=== PATIENT | female | born 1995 | race Caucasian/White ===

== ENCOUNTER 2018-07-18 12:33 | Emergency (ER) | END 2018-07-18 15:33 | disposition home or self-care (01) ==

== ENCOUNTER 2019-01-12 15:28 | Emergency (ER) | payer MEDICAID ==
[~2019-01-12] VITALS: Ht 177.8 cm; Wt 124.6 kg
[~2019-01-12 15:28] MED LIST: DOCU-144 PO; FER325 PO; NAPR-985 PO; NORE-90 PO
[2019-01-12 15:42] VITALS: Ht 177.8 cm; Wt 124.6 kg
[2019-01-12] MEDS ORDERED: ONDANSETRON (ODT) 4 MG TAB ODT STA (18:04)
[2019-01-12] MEDS ORDERED: HYDROCODONE/APAP (5/325) TAB PO ONE (18:30)
[2019-01-12] MEDS ORDERED: IBUP-1542 PO (20:33)
[2019-01-12] MEDS ORDERED: HYDR-4011 PO (20:33)
--- NOTE | 2019-01-12 20:36 | ERD ---
ER Documentation Chief Complaint Chief Complaint pelvic pain also vaginal bleeding x 15 days after removing IUD ROS All systems reviewed and are negative except as per history of present illness. Medications Home Meds Active Scripts Hydrocodone/Acetaminophen (Franklin 5-325 Tablet) 1 Each Tablet, 1 TAB PO Q6H PRN for PAIN, #10 TAB Prov:TRACY CESAR DO 01/12/19 Ibuprofen* (Motrin*) 600 Mg Tab, 600 MG PO Q6H PRN for PAIN AND OR ELEVATED TEMP, #30 TAB Prov:TRACY CESAR DO 01/12/19 Docusate Sodium* (Colace*) 100 Mg Capsule, 100 MG PO TID, #30 CAP Prov:EVERT WELCH PA-C 07/18/18 Ferrous Sulfate* (Ferrous Sulfate*) 325 Mg Tabec, 325 MG PO DAILY, #30 TAB Prov:EVERT WELCH PA-C 07/18/18 Naproxen* (Naprosyn*) 500 Mg Tablet, 500 MG PO BID PRN for PAIN AND/OR INFLAMMATION, #30 TAB Prov:EVERT WELCH PA-C 07/18/18 Norethindrone-E.estradiol-Iron (Loestrin Fe 1.5-30 Tablet) 1 Each Tablet, 1 EACH PO DAILY, #30 TAB Prov:EVERT WELCH PA-C 07/18/18 Allergies Allergies: Coded Allergies: No Known Allergy (Unverified , 01/12/19) PMhx/Soc History of Surgery: Yes () Anesthesia Reaction: No Hx Neurological Disorder: No Hx Respiratory Disorders: No Hx Cardiac Disorders: No Hx Psychiatric Problems: No Hx Miscellaneous Medical Probl: Yes (elevated platelets) Hx Alcohol Use: No Hx Substance Use: No Hx Tobacco Use: No Smoking Status: Never smoker Physical Exam Vitals Vital Signs Date Temp Pulse Resp B/P (MAP) Pulse Ox O2 O2 Flow FiO2 Time Delivery Rate 01/12/19 99.3 106 18 134/79 100 15:42 (97) Physical Exam Const: No acute distress Head: Atraumatic Eyes: Normal Conjunctiva ENT: Normal External Ears, Nose and Mouth. Neck: Full range of motion. No meningismus. Resp: Clear to auscultation bilaterally Cardio: Regular rate and rhythm, no murmurs Abd: Soft, non tender, non distended. Normal bowel sounds Skin: No petechiae or rashes Back: No midline or flank tenderness Ext: No cyanosis, or edema Neur: Awake and alert Psych: Normal Mood and Affect Result Diagram: 01/12/19181901/12/191819 Results 24 hrs Laboratory Tests Test 01/12/19 18:20 01/12/19 18:30 White Blood Count 10.0 10^3/ul Red Blood Count 4.43 10^6/ul Hemoglobin 10.6 g/dl Hematocrit 34.3 % Mean Corpuscular Volume 77.4 fl Mean Corpuscular Hemoglobin 23.9 pg Mean Corpuscular Hemoglobin Concent 30.9 g/dl Red Cell Distribution Width 16.3 % Platelet Count 546 10^3/UL Mean Platelet Volume 9.1 fl Immature Granulocytes % 0.500 % Neutrophils % 50.9 % Lymphocytes % 38.0 % Monocytes % 7.9 % Eosinophils % 2.1 % Basophils % 0.6 % Nucleated Red Blood Cells % 0.0 /100WBC Immature Granulocytes # 0.050 10^3/ul Neutrophils # 5.1 10^3/ul Lymphocytes # 3.8 10^3/ul Monocytes # 0.8 10^3/ul Eosinophils # 0.2 10^3/ul Basophils # 0.1 10^3/ul Nucleated Red Blood Cells # 0.0 10^3/ul Sodium Level 141 mmol/L Potassium Level 3.7 mmol/L Chloride Level 108 mmol/L Carbon Dioxide Level 23 mmol/L Anion Gap 10 Blood Urea Nitrogen 11 mg/dl Creatinine 0.57 mg/dl Est Glomerular Filtrat Rate mL/min > 60 mL/min Glucose Level 100 mg/dl Calcium Level 9.5 mg/dl Total Bilirubin 0.1 mg/dl Direct Bilirubin 0.00 mg/dl Indirect Bilirubin 0.1 mg/dl Aspartate Amino Transf (AST/SGOT) 21 IU/L Alanine Aminotransferase (ALT/SGPT) 34 IU/L Alkaline Phosphatase 112 IU/L Total Protein 8.4 g/dl Albumin 4.2 g/dl Globulin 4.20 g/dl Albumin/Globulin Ratio 1.00 Serum HCG, Qualitative NEGATIVE Urine Color JONH Urine Clarity CLOUDY Urine pH 5.0 Urine Specific Allen 1.038 Urine Ketones NEGATIVE mg/dL Urine Nitrite NEGATIVE mg/dL Urine Bilirubin NEGATIVE mg/dL Urine Urobilinogen NEGATIVE mg/dL Urine Leukocyte Esterase TRACE Radha/ul Urine Microscopic RBC > 182 /HPF Urine Microscopic WBC 5 /HPF Urine Mucus FEW /HPF Urine Hemoglobin 3+ mg/dL Urine Glucose NEGATIVE mg/dL Urine Total Protein 2+ mg/dl Current Medications Medications Dose Sig/Davis Start Time Status Last (Trade) Ordered Route PRN Stop Time Admin Dose Reason Admin 1 tab ONCE ONCE 01/12/19 DC 01/12/19 Acetaminophen PO 18:30 18:33 / 01/12/19 18:31 Hydrocodone Bitart (Franklin (5/325)) Ondansetron 4 mg ONCE STAT 01/12/19 DC 01/12/19 HCl (Zofran ODT 18:04 18:33 Odt) 01/12/19 18:07 Departure Diagnosis: Primary Impression: Vaginal bleeding Additional Impression: Pelvic pain Condition: Fair Patient Instructions: Pelvic Pain, Unknown Cause Referrals: COMM[facility] YOU HAVE RECEIVED A MEDICAL SCREENING EXAM AND THE RESULTS INDICATE THAT YOU DO NOT HAVE A CONDITION THAT REQUIRES URGENT TREATMENT IN THE EMERGENCY DEPARTMENT. FURTHER EVALUATION AND TREATMENT OF YOUR CONDITION CAN WAIT UNTIL YOU ARE SEEN IN YOUR DOCTORS OFFICE WITHIN THE NEXT 1-2 DAYS. IT IS YOUR RESPONSIBILITY TO MAKE AN APPOINTMENT FOR FOLOW-UP CARE. IF YOU HAVE A PRIMARY DOCTOR --you should call your primary doctor and schedule an appointment IF YOU DO NOT HAVE A PRIMARY DOCTOR YOU CAN CALL OUR PHYSICIAN REFERRAL HOTLINE AT IF YOU CAN NOT AFFORD TO SEE A PHYSICIAN YOU CAN CHOSE FROM THE FOLLOWING [facility] [address] [facility]. [facility] [address] [facility] [address] [facility]. [facility] [address] [facility] [address] [facility] [address] [employer] [address] [facility] [address] [place] [address] [id number] OFFICE FAX , MIKE [address] [place], [place] [id number] DR[address] HOFF, M[place] [address] [place] [address] DR SALCIDO, [facility] [address] [address] [facility] [place], [address], [place] [address] DR HIGUERA[facility] [address] [place] [address] [facility] [place] [address] [place] [address] [address] [facility] [id number] - DR MEHTA, LOGAN [address], [place] [address] DR TAN, MALIK [address] [facility]. [address], [place] [address] DR GARCIA, FARID [address] [place], [place] [id number] Additional Instructions: Llame al doctor MAANA y barbara shweta SHANTELL PARA DENTRO DE 1-2 QUICK.Dgale a la secretaria que nosotros le instruimos hacer esta shantell.Avise o llame si scott condicin se empeora antes de la shantell. Regresa aqui si peor o no mejor. TRACY CESAR DO Jan 12, 2019 20:36
[2019-01-12 20:43] VITALS: BP 124/78; PULSE 72; RESP 20
== END 2019-01-12 20:43 | disposition home or self-care (01) ==
LOC: FTE 15:28
DX: N93.9 Abnormal uterine and vaginal bleeding, unspecified (principal)
CPT/HCPCS: 36415; 76830; 76856; 80053; 81001; 84703; 85025; Z7502; Z7610

== ENCOUNTER 2019-05-08 03:51 | Emergency (ER) | payer MEDICAID ==
[~2019-05-08] VITALS: Ht 172.7 cm; Wt 129.0 kg
[~2019-05-08 03:51] MED LIST changes: +HYDR-4011 PO; +IBUP-1542 PO
[2019-05-08 03:55] VITALS: BP 137/85; PULSE 87; RESP 18; Ht 172.7 cm; Wt 129.0 kg
--- NOTE | 2019-05-08 04:19 | ERD ---
ER Documentation Chief Complaint Chief Complaint COUGH/ ST X'S 3 DAYS; HEMOPTYSIS X'S 1 DAY HPI Patient is a 23 years old female with no known past medical history presenting to the clinic for persistent throat pain, cough, green sputum production, fever, chills X 4 days. Patient admits to new onset mild phthisis as of yesterday. Patient denies shortness of breath, difficulty breathing, and chest pain. Patient admits to taking [id number] Tylenol with mild resolution of symptoms. Patient denies any recent weight loss. ROS All systems reviewed and are negative except as per history of present illness. Medications Home Meds Active Scripts Dextromethorphan Hb-Promethazine Hcl* (Promethazine DM* Syrup) 473 Ml Syrup, 5 ML PO Q6 PRN for COUGH for 7 Days, ML Prov:MARITO MONTANA PA-C 05/08/19 Amoxicillin/Potassium Clav (Amox-Clav 875-125 mg Tablet) 875-125 mg Tab, 1 TAB PO BID for 10 Days, #20 TAB Prov:MARITO MONTANA PA-C 05/08/19 Hydrocodone/Acetaminophen ([place] 5-325 Tablet) 1 Each Tablet, 1 TAB PO Q6H PRN for PAIN, #10 TAB Prov:TRACY CESAR DO 01/12/19 Ibuprofen* (Motrin*) 600 Mg Tab, 600 MG PO Q6H PRN for PAIN AND OR ELEVATED TEMP, #30 TAB Prov:TRACY CESAR DO 01/12/19 Docusate Sodium* (Colace*) 100 Mg Capsule, 100 MG PO TID, #30 CAP Prov:EVERT WELCH PA-C 07/18/18 Ferrous Sulfate* (Ferrous Sulfate*) 325 Mg Tabec, 325 MG PO DAILY, #30 TAB Prov:EVERT WELCH PA-C 07/18/18 Naproxen* (Naprosyn*) 500 Mg Tablet, 500 MG PO BID PRN for PAIN AND/OR INFLAMMATION, #30 TAB Prov:EVERT WELCH PA-C 07/18/18 Norethindrone-E.estradiol-Iron (Loestrin Fe 1.5-30 Tablet) 1 Each Tablet, 1 EACH PO DAILY, #30 TAB Prov:EVERT WELCH PA-C 07/18/18 Allergies Allergies: Coded Allergies: No Known Allergy (Unverified , 01/12/19) PMhx/Soc History of Surgery: Yes () Anesthesia Reaction: No Hx Neurological Disorder: No Hx Respiratory Disorders: No Hx Cardiac Disorders: No Hx Psychiatric Problems: No Hx Miscellaneous Medical Probl: Yes (elevated platelets) Hx Alcohol Use: No Hx Substance Use: No Hx Tobacco Use: No FmHx Family History: No diabetes, No coronary disease, No other Physical Exam Vitals Vital Signs Date Temp Pulse Resp B/P (MAP) Pulse Ox O2 O2 Flow FiO2 Time Delivery Rate 05/08/19 98.7 87 18 137/85 100 03:55 (102) Physical Exam Const: No acute distress Head: Atraumatic Eyes: Normal Conjunctiva ENT: Normal External Ears, Nose and Mouth. Tonsillar erythema with lesions. No exudate or edema noted in oropharyngeal exam. Tympanic membrane clear bilaterally. Neck: Full range of motion. No meningismus. Resp: Clear to auscultation bilaterally. No rales, rhonchi, wheezing. Cardio: Regular rate and rhythm, no murmurs Neur: Awake and alert Psych: Normal Mood and Affect Results 24 hrs Laboratory Tests Test 05/08/19 04:37 POC Beta HCG, Qualitative NEGATIVE Current Medications Medications Dose Sig/Davis Start Time Status Last (Trade) Ordered Route PRN Stop Time Admin Dose Reason Admin 650 mg ONCE ONCE 05/08/19 DC 05/08/19 Acetaminophen PO 04:30 04:33 (Tylenol 05/08/19 04:31 Tab) Procedures/MDM Patient was seen and evaluated for throat pain, cough, hemoptysis. Patient is experiencing tonsillitis without complication. Chest x-ray revealed No evidence of acute cardiopulmonary disease. Patient was given Tylenol in ED. Patient is stable and ready for discharge. Follow-up with PCP. Patient will be discharged with Augmentin for 10 days and Promethazine DM. Departure Diagnosis: Primary Impression: Hemoptysis Additional Impression: Tonsillitis Condition: Stable Patient Instructions: When Your Child Has Pharyngitis or Tonsillitis , Hemoptysis Referrals: [facility] Additional Instructions: Paciente aconseja volver a Departamento de urgencias inmediatamente para sntomas nuevos o que empeoran . Paciente aconseja posteriores con el PCP en 2-3 leon . Paciente verbaliza la comprehensin y est de acuerdo con el tratamiento y el curso de accin. Si el paciente no tiene ninguna de atencin primaria pueden seguir con [facility] [address] [place] [address] [address] MARITO MONTANA PA-C May 08, 2019 04:19
[2019-05-08] MEDS ORDERED: D-ME473S2 PO (04:20)
[2019-05-08] MEDS ORDERED: AMOX1TAB10 PO (04:20)
[2019-05-08] MEDS ORDERED: ACETAMINOPHEN 325 MG TAB PO ONE (04:30)
== END 2019-05-08 05:33 | disposition home or self-care (01) ==
LOC: FTE 03:51
DX: R04.2 Hemoptysis (principal); J03.90 Acute tonsillitis, unspecified
CPT/HCPCS: 71046; 81025; Z7502; Z7610